=== PATIENT | male | born 1955 | race Two or more races ===

== ENCOUNTER 2017-02-27 18:04 | Emergency (ER) | payer OTHER ==
[~2017-02-27] VITALS: Ht 167.6 cm; Wt 76.3 kg
[2017-02-27 18:06] VITALS: BP 153/94
== END 2017-02-27 21:00 | disposition home or self-care (01) ==
LOC: ED 20:15
DX: S39.012A Strain of muscle, fascia and tendon of lower back, initial encounter (principal); M51.36 Other intervertebral disc degeneration, lumbar region; I10 Essential (primary) hypertension; X58.XXXA Exposure to other specified factors, initial encounter; Y93.89 Activity, other specified; Y92.89 Other specified places as the place of occurrence of the external cause; Y99.8 Other external cause status
CPT/HCPCS: 72110; 76870; 81003; 99285